=== PATIENT | female | born 1950 | race Caucasian/White ===

== ENCOUNTER 2016-09-12 11:17 | Emergency (ER) | payer OTHER ==
--- NOTE | 2016-09-12 13:25 | DIAGNOSTIC IMAGING REPORT ---
PROCEDURE: XR THORACIC SPINE 3 VIEWS INDICATION: MID BACK PAIN TECHNIQUE: Three views. COMPARISON: None. FINDINGS: Osseous structures and disc spaces are normal. No evidence of an acute process or fracture. Minimal hypertrophic spur formation IMPRESSION: 1. Negative thoracic spine.
--- NOTE | 2016-09-12 15:15 | ED ORDER SUMMARY ---
..... Patient: ERIC MCCRAY OrderSheet [facility] VisitID: [id number] [address] [place] [address] 66y, F Registration Date/Time: 09/12/2016 ORDER SHEET Weight: 74.3 kg (stated) Allergies: No Known Drug Allergy GENERAL ORDERS: Thoracic Spine 3V Urgent (12:43 09/12/2016 Cipriano Montemayor) (Ack 12:44 Mariely) (14:05 Magdiel R.N.) MEDICATION ORDERS: Toradol IM 60 mg (NOW) (12:43 09/12/2016 Cipriano Montemayor) (Ack 14:01 Magdiel R.N.) (14:08 Magidel R.N.) IV FLUIDS: ORDER SHEET NOTES: [Electronically signed by Afua Traylor R.N. (15:14 09/12/2016)] [Electronically signed by Farhat Saucedo Dr. (22:22 09/12/2016)] [Electronically locked/signed by Afua Traylor R.N. (15:14 09/12/2016)]
--- NOTE | 2016-09-12 15:15 | ED CLINICAL REPORT ---
Clinical Report - Physicians/Mid Levels [facility] [address] [place] [place] [address] 09/12/2016 11:19 Patient: ERIC MCCRAY Time Seen: 12:24; initial patient contact. Arrived- By private vehicle. Historian- patient. HISTORY OF PRESENT ILLNESS Chief Complaint: BACK PAIN. Onset- about 3 weeks ago and it is still present. Modifying factors- worsened by bending over. Not relieved by anything. It is described as being moderate in degree and in the area of the lower thoracic spine. The quality is noted to be aching. No radiation. No bladder dysfunction, bowel dysfunction, sensory loss or motor loss. Patient denies an injury but injury to the head or neck. Similar symptoms previously: Once. Recent medical care: Not recently seen/assessed. REVIEW OF SYSTEMS No fever, chills or headache. All systems otherwise negative, except as recorded above. PAST HISTORY Back Pain. Bronchitis. Anxiety Reaction. Bipolar Disorder. Depression. ADDITIONAL SURGERIES: Breast Augmentation. Cholecystectomy. Hemorrhoidectomy. Tubal Ligation. Tummy tuck. Medications: Docusate Sodium Oral, bid. [employer] Oral, daily. D3-1000 Oral (Capsule 1000 unit) 2 capsules, daily. B Complex-B12 Oral 1000 mcg, daily (2 tabs). Lipitor Oral (Tablet 20 mg) 1 tablet, daily. Zolpidem Tartrate Oral 12.5 mg, at bedtime. Evoxac Oral (Capsule 30 mg) 1 capsule, tid. Minipress Oral (Capsule 1 mg) 2 capsules, at bedtime. NexIUM Oral 20 mg, daily. Diazepam Oral 5 mg, 3x a day. Vortioxetine HBr Oral (Tablet 10 mg), daily. Allergies: No Known Drug Allergy. SOCIAL HISTORY Never smoker. No alcohol use or drug use. ADDITIONAL NOTES The nursing notes have been reviewed with agreement regarding the chief complaint, PMH and patient medications and allergies. PHYSICAL EXAM Appearance: Alert. No acute distress. ENT: Pharynx normal. Neck: Normal inspection. Neck nontender. Painless ROM. CVS: Heart sounds normal. Pulses normal. Respiratory: No respiratory distress. Breath sounds normal. Back: Mild muscle spasm of the right and left posterior back. Moderate soft tissue tenderness in the right upper, mid and lower and left upper, mid and lower thoracic area. No vertebral point tenderness or CVA tenderness. Neuro: Oriented X 3. Mood/affect normal. No motor deficit. No sensory deficit. LABS, X-RAYS, AND EKG T-Spine X-rays: Normal anterior contour line and posterior contour line. Moderate degenerative joint disease with moderate narrowing of disc spaces. No fracture present. No subluxation present. Soft tissues normal. Spinous processes aligned. Views: AP and lateral. Technique: good. The X-rays were independently viewed by me and interpreted contemporaneously by me. Prior films were not available for comparison. Interpretation time: 13:32. PROGRESS AND PROCEDURES Disposition: Discharged home in good and improved condition. Condition: good. CLINICAL IMPRESSION Acute nontraumatic thoracic back pain associated with muscle strain. INSTRUCTIONS No lifting greater than 10 lbs until well. Your Current Medications: CONTINUE TAKING THE FOLLOWING MEDICATIONS: B Complex-B12 Oral : 1000 mcg daily, 2 tabs. D3-1000 Oral : Capsule 1000 unit, 2 capsules daily. Diazepam Oral : 5 mg 3x a day. Docusate Sodium Oral : bid. Evoxac Oral : Capsule 30 mg, 1 capsule tid. Lipitor Oral : Tablet 20 mg, 1 tablet daily. Minipress Oral : Capsule 1 mg, 2 capsules at bedtime. NexIUM Oral : 20 mg daily. [employer] [facility] Oral : daily. Vortioxetine HBr Oral : Tablet 10 mg, daily. Zolpidem Tartrate Oral : 12.5 mg at bedtime. Prescription Medications: Baclofen 10 mg: take 1 orally every 8 hours Tramadol 50 mg: take 1 orally every 6 hours as needed for pain and stiffness. Do not take more than 8 tablets in a 24 hour period. Dispense thirty (30). No refills. Follow-up: Follow up with your doctor in about three days. Call for an appointment. Blood pressure screening was not performed during this visit because the patient has an active diagnosis of hypertension. The patient should follow up with a primary care provider for blood pressure management. (Electronically signed by Farhat Saucedo Dr. 09/12/2016 22:22)
--- NOTE | 2016-09-12 15:15 | ED CLINICAL REPORT ---
Clinical Report - Physicians/Mid Levels [facility] [address] [place] [place] [address] 09/12/2016 11:19 Patient: ERIC MCCRAY Time Seen: 12:24; initial patient contact. Arrived- By private vehicle. Historian- patient. HISTORY OF PRESENT ILLNESS Chief Complaint: BACK PAIN. Onset- about 3 weeks ago and it is still present. Modifying factors- worsened by bending over. Not relieved by anything. It is described as being moderate in degree and in the area of the lower thoracic spine. The quality is noted to be aching. No radiation. No bladder dysfunction, bowel dysfunction, sensory loss or motor loss. Patient denies an injury but injury to the head or neck. Similar symptoms previously: Once. Recent medical care: Not recently seen/assessed. REVIEW OF SYSTEMS No fever, chills or headache. All systems otherwise negative, except as recorded above. PAST HISTORY Back Pain. Bronchitis. Anxiety Reaction. Bipolar Disorder. Depression. ADDITIONAL SURGERIES: Breast Augmentation. Cholecystectomy. Hemorrhoidectomy. Tubal Ligation. Tummy tuck. Medications: Docusate Sodium Oral, bid. [place] Oral, daily. D3-1000 Oral (Capsule 1000 unit) 2 capsules, daily. B Complex-B12 Oral 1000 mcg, daily (2 tabs). Lipitor Oral (Tablet 20 mg) 1 tablet, daily. Zolpidem Tartrate Oral 12.5 mg, at bedtime. Evoxac Oral (Capsule 30 mg) 1 capsule, tid. Minipress Oral (Capsule 1 mg) 2 capsules, at bedtime. NexIUM Oral 20 mg, daily. Diazepam Oral 5 mg, 3x a day. Vortioxetine HBr Oral (Tablet 10 mg), daily. Allergies: No Known Drug Allergy. SOCIAL HISTORY Never smoker. No alcohol use or drug use. ADDITIONAL NOTES The nursing notes have been reviewed with agreement regarding the chief complaint, PMH and patient medications and allergies. PHYSICAL EXAM Appearance: Alert. No acute distress. ENT: Pharynx normal. Neck: Normal inspection. Neck nontender. Painless ROM. CVS: Heart sounds normal. Pulses normal. Respiratory: No respiratory distress. Breath sounds normal. Back: Mild muscle spasm of the right and left posterior back. Moderate soft tissue tenderness in the right upper, mid and lower and left upper, mid and lower thoracic area. No vertebral point tenderness or CVA tenderness. Neuro: Oriented X 3. Mood/affect normal. No motor deficit. No sensory deficit. LABS, X-RAYS, AND EKG T-Spine X-rays: Normal anterior contour line and posterior contour line. Moderate degenerative joint disease with moderate narrowing of disc spaces. No fracture present. No subluxation present. Soft tissues normal. Spinous processes aligned. Views: AP and lateral. Technique: good. The X-rays were independently viewed by me and interpreted contemporaneously by me. Prior films were not available for comparison. Interpretation time: 13:32. PROGRESS AND PROCEDURES Disposition: Discharged home in good and improved condition. Condition: good. CLINICAL IMPRESSION Acute nontraumatic thoracic back pain associated with muscle strain. INSTRUCTIONS No lifting greater than 10 lbs until well. Your Current Medications: CONTINUE TAKING THE FOLLOWING MEDICATIONS: B Complex-B12 Oral : 1000 mcg daily, 2 tabs. D3-1000 Oral : Capsule 1000 unit, 2 capsules daily. Diazepam Oral : 5 mg 3x a day. Docusate Sodium Oral : bid. Evoxac Oral : Capsule 30 mg, 1 capsule tid. Lipitor Oral : Tablet 20 mg, 1 tablet daily. Minipress Oral : Capsule 1 mg, 2 capsules at bedtime. NexIUM Oral : 20 mg daily. [employer] [facility] Oral : daily. Vortioxetine HBr Oral : Tablet 10 mg, daily. Zolpidem Tartrate Oral : 12.5 mg at bedtime. Prescription Medications: Baclofen 10 mg: take 1 orally every 8 hours Tramadol 50 mg: take 1 orally every 6 hours as needed for pain and stiffness. Do not take more than 8 tablets in a 24 hour period. Dispense thirty (30). No refills. Follow-up: Follow up with your doctor in about three days. Call for an appointment. Blood pressure screening was not performed during this visit because the patient has an active diagnosis of hypertension. The patient should follow up with a primary care provider for blood pressure management. (Electronically signed by Farhat Saucedo Dr. 09/12/2016 22:22)
--- NOTE | 2016-09-12 15:15 | ED NURSING NOTES ---
Clinical Report - Nurses [facility] [place] [address] [place] [address] 09/12/2016 11:19 Patient: ERIC MCCRAY TRIAGE Triage time 12:18. Acuity: LEVEL 3. Chief Complaint: BACK PAIN. Alert. No acute distress. DAR COMA SCORE: Dar Coma Scale: 15- eyes open spontaneously (4); best verbal response- oriented x 4 (5); best motor response- obeys commands (6). --12:25 Elif Arreola R.N. 12:18 09/12/16. BP: 183/80. HR: 73. RR: 16. O2 saturation: 99% on room air. Temp: 98.9 F (oral). Pain level now: 03/02. --12:25 Elif Arreola R.N. Weight: 74.3 kg stated. Height/Length: 63 inches Per Patient. BMI: 29. --12:22 Elif Arreola R.N. Medications Vortioxetine HBr Oral (Tablet 10 mg), daily. --12:36 Elif Arreola R.N. Diazepam Oral 5 mg, 3x a day. --12:37 Elfi Arreola R.N. NexIUM Oral 20 mg, daily. --12:38 Elif Arreola R.N. Minipress Oral (Capsule 1 mg) 2 capsules, at bedtime. --12:39 Elif Arreola R.N. Evoxac Oral (Capsule 30 mg) 1 capsule, tid. --12:40 Elif Arreola R.N. Zolpidem Tartrate Oral 12.5 mg, at bedtime. --12:41 Elif Arreola R.N. Lipitor Oral (Tablet 20 mg) 1 tablet, daily. --12:42 Elif Arreola R.N. B Complex-B12 Oral 1000 mcg, daily (2 tabs). --12:43 Elif Arreola R.N. D3-1000 Oral (Capsule 1000 unit) 2 capsules, daily. --12:44 Elif Arreola R.N. [facility] Oral, daily. --12:48 Elif Arreola R.N. Docusate Sodium Oral, bid. --12:56 Elif Arreola R.N. Allergies No Known Drug Allergy. --12:20 Elif Arreola R.N. History Arrived by private vehicle. Historian: patient. Accompanied by friend. Primary physician (Latia). Onset. (about 1 month). ( unknown if recent injury, is chronic issue). PAST MEDICAL HX: The patient is post-menopausal. SOCIAL HX: Smoker- current status unknown (no). No alcohol use or drug use. FALL RISK ASSESSMENT: Fall risk assessment completed. No fall risk identified. FUNCTIONAL ASSESSMENT: Functional assessment: no impairments noted. LEARNING NEEDS ASSESSMENT: The learning needs assessment revealed no barriers. --12:25 Elif Arreola R.N. PROBLEMS: Back Pain. Bronchitis. Anxiety Reaction. Bipolar Disorder. Depression. --12:21 Elif Arreola R.N. ADDITIONAL SURGERIES: Breast Augmentation. Cholecystectomy. Hemorrhoidectomy. Tubal Ligation. Tummy tuck. --12:21 Elif Arreola R.N. Assessment GENERAL / NEURO / PSYCH: Alert. Oriented X 4. Appears in no acute distress. Patient appears calm and cooperative. RESPIRATORY: Respirations not labored. SKIN: Skin is warm and dry. --12:25 Elif Arreola R.N. Interventions ID band on patient. To treatment room. --12:25 Elif Arreola R.N. PHYSICAL ASSESSMENT 12:09/12/16. Ambulatory to room. Patient gowned. GENERAL / NEURO / PSYCH: Alert. Oriented X 4. Appears in no acute distress. RESPIRATORY: Respirations not labored. --12:31 Elif Arreola R.N. NURSING PROGRESS NOTES 12:09/12/16. Patient gowned. Head of bed elevated. Reassurance given. Call light placed in reach. Side rails up x 1. Bed placed in lowest position. Brakes of bed on. --12:31 Elif Arreola R.N. 14:08 09/12/2016 Toradol (Ketorolac Tromethamine) IM 60 mg given. Given in the right ventral gluteus. Allergies verified and confirmed 5 rights. --14:08 Elif Arreola R.N. 15:08 09/12/2016 Toradol IM Response: no adverse reaction pain is improving. --15:08 Afua Traylor R.N. DISPOSITION / DISCHARGE Condition at departure: stable. No learning barriers present. Discharge instructions provided and reviewed with the patient. Reviewed medication(s) side effects, precautions, dosing and course information. Prescription(s) given to the patient. Reviewed referral to family practice for followup. Patient verbalized understanding. Written instructions provided in [place]. The patient was discharged home and unaccompanied at time of discharge. She left the Emergency Department ambulatory. ( provider aware of d/c v/s prior to d/c.). Medication list reviewed and validated. --15:10 Afua Traylor R.N. 15:08 09/12/16. BP: 190/86. HR: 60. RR: 16. O2 saturation: 99%. Temp: 98.7 F. Pain level now 6/10. --15:10 Afua Traylor R.N. Departure time: 15:10. --15:10 Afua rTaylor R.N. Locked/Released at 09/12/2016 15:14 by Afua Traylor R.N.
--- NOTE | 2016-09-12 15:15 | ED NURSING NOTES ---
Clinical Report - Nurses [place] [address] [place] [address] 09/12/2016 11:19 Patient: ERIC MCCRAY TRIAGE Triage time 12:18. Acuity: LEVEL 3. Chief Complaint: BACK PAIN. Alert. No acute distress. DAR COMA SCORE: Dar Coma Scale: 15- eyes open spontaneously (4); best verbal response- oriented x 4 (5); best motor response- obeys commands (6). --12:25 Elif Arreola R.N. 12:18 09/12/16. BP: 183/80. HR: 73. RR: 16. O2 saturation: 99% on room air. Temp: 98.9 F (oral). Pain level now: 03/02. --12:25 Elif Arreola R.N. Weight: 74.3 kg stated. Height/Length: 63 inches Per Patient. BMI: 29. --12:22 Elif Arreola R.N. Medications Vortioxetine HBr Oral (Tablet 10 mg), daily. --12:36 Elif Arreola R.N. Diazepam Oral 5 mg, 3x a day. --12:37 Elif Arreola R.N. NexIUM Oral 20 mg, daily. --12:38 Elif Arreola R.N. Minipress Oral (Capsule 1 mg) 2 capsules, at bedtime. --12:39 Elif Arreola R.N. Evoxac Oral (Capsule 30 mg) 1 capsule, tid. --12:40 Elif Arreola R.N. Zolpidem Tartrate Oral 12.5 mg, at bedtime. --12:41 Elif Arreola R.N. Lipitor Oral (Tablet 20 mg) 1 tablet, daily. --12:42 Elif Arreola R.N. B Complex-B12 Oral 1000 mcg, daily (2 tabs). --12:43 Elif Arreola R.N. D3-1000 Oral (Capsule 1000 unit) 2 capsules, daily. --12:44 Elif Arreola R.N. [facility] Oral, daily. --12:48 Elif Arreola R.N. Docusate Sodium Oral, bid. --12:56 Elif Arreola R.N. Allergies No Known Drug Allergy. --12:20 Elif Arreola R.N. History Arrived by private vehicle. Historian: patient. Accompanied by friend. Primary physician (Latia). Onset. (about 1 month). ( unknown if recent injury, is chronic issue). PAST MEDICAL HX: The patient is post-menopausal. SOCIAL HX: Smoker- current status unknown (no). No alcohol use or drug use. FALL RISK ASSESSMENT: Fall risk assessment completed. No fall risk identified. FUNCTIONAL ASSESSMENT: Functional assessment: no impairments noted. LEARNING NEEDS ASSESSMENT: The learning needs assessment revealed no barriers. --12:25 Elif Arreola R.N. PROBLEMS: Back Pain. Bronchitis. Anxiety Reaction. Bipolar Disorder. Depression. --12:21 Elif Arreola R.N. ADDITIONAL SURGERIES: Breast Augmentation. Cholecystectomy. Hemorrhoidectomy. Tubal Ligation. Tummy tuck. --12:21 Elif Arreola R.N. Assessment GENERAL / NEURO / PSYCH: Alert. Oriented X 4. Appears in no acute distress. Patient appears calm and cooperative. RESPIRATORY: Respirations not labored. SKIN: Skin is warm and dry. --12:25 Elif Arreola R.N. Interventions ID band on patient. To treatment room. --12:25 Elif Arreola R.N. PHYSICAL ASSESSMENT 12:09/12/16. Ambulatory to room. Patient gowned. GENERAL / NEURO / PSYCH: Alert. Oriented X 4. Appears in no acute distress. RESPIRATORY: Respirations not labored. --12:31 Elif Arreola R.N. NURSING PROGRESS NOTES 12:09/12/16. Patient gowned. Head of bed elevated. Reassurance given. Call light placed in reach. Side rails up x 1. Bed placed in lowest position. Brakes of bed on. --12:31 Elif Arreola R.N. 14:08 09/12/2016 Toradol (Ketorolac Tromethamine) IM 60 mg given. Given in the right ventral gluteus. Allergies verified and confirmed 5 rights. --14:08 Elif Arreola R.N. 15:08 09/12/2016 Toradol IM Response: no adverse reaction pain is improving. --15:08 Afua Traylor R.N. DISPOSITION / DISCHARGE Condition at departure: stable. No learning barriers present. Discharge instructions provided and reviewed with the patient. Reviewed medication(s) side effects, precautions, dosing and course information. Prescription(s) given to the patient. Reviewed referral to family practice for followup. Patient verbalized understanding. Written instructions provided in Chinese. The patient was discharged home and unaccompanied at time of discharge. She left the Emergency Department ambulatory. ( provider aware of d/c v/s prior to d/c.). Medication list reviewed and validated. --15:10 Afua Traylor R.N. 15:08 09/12/16. BP: 190/86. HR: 60. RR: 16. O2 saturation: 99%. Temp: 98.7 F. Pain level now 6/10. --15:10 Afua Traylor R.N. Departure time: 15:10. --15:10 Afua Traylor R.N. Locked/Released at 09/12/2016 15:14 by Afua Traylor R.N.
--- NOTE | 2016-09-12 15:15 | ED ORDER SUMMARY ---
..... Patient: ERIC MCCRAY OrderSheet [facility] VisitID: [id number] [address] [place] [address] 66y, F Registration Date/Time: 09/12/2016 ORDER SHEET Weight: 74.3 kg (stated) Allergies: No Known Drug Allergy GENERAL ORDERS: Thoracic Spine 3V Urgent (12:43 09/12/2016 Cipriano Montemayor) (Ack 12:44 Mariely) (14:05 Magdiel R.N.) MEDICATION ORDERS: Toradol IM 60 mg (NOW) (12:43 09/12/2016 Cipriano Montemayor) (Ack 14:01 Magdiel R.N.) (14:08 Magdiel R.N.) IV FLUIDS: ORDER SHEET NOTES: [Electronically signed by Afua Traylor R.N. (15:14 09/12/2016)] [Electronically signed by Farhat Saucedo Dr. (22:22 09/12/2016)] [Electronically locked/signed by Afua Traylor R.N. (15:14 09/12/2016)]
--- NOTE | 2016-09-12 22:22 | ED MAR SUMMARY ---
..... Medication Administration Record [facility] [address] [place] [address] Patient: ERIC MCCRAY Visit ID: [id number] 66y, F Weight: 74.3 kg Height/Length: 63 in BMI: 29 ALLERGIES: No Known Drug Allergy Given 14:08 09/12/2016 Elif Arreola R.N. Medication Administered: TORADOL [IM] (KETOROLAC TROMETHAMINE), Dose: 60 mg IM. Medication Ordered: Toradol IM 60 mg (NOW).
--- NOTE | 2016-09-12 22:22 | ED MED RECONCILIATION SUMMARY ---
Patient: ERIC MCCRAY Medication Reconciliation Report [facility] VisitID: [id number] [address] [place] [address] 66y, F Registration Date/Time: 09/12/2016 Weight: 74.3 kg Height/Length: 63 in. BMI: 29.0 ALLERGIES: No Known Drug Allergy The patient's Home Medications are listed below: CONTINUE TAKING THE FOLLOWING MEDICATIONS: B Complex-B12 Oral 1000 mcg, daily, 2 tabs D3-1000 Oral (1000 unit) 2 capsules, daily Diazepam Oral 5 mg, 3x a day Docusate Sodium Oral, bid Evoxac Oral (30 mg) 1 capsule, tid Lipitor Oral (20 mg) 1 tablet, daily Minipress Oral (1 mg) 2 capsules, at bedtime NexIUM Oral 20 mg, daily [facility] Oral, daily Vortioxetine HBr Oral (10 mg), daily Zolpidem Tartrate Oral 12.5 mg, at bedtime The source(s) of the original Home Medication information: Not obtained. The following Medications were given to the patient in the Emergency Department: Toradol [IM] IM 60 mg, administered: 09/12/2016 2:08:00 PM The following Medications were prescribed to the patient: Baclofen 10 mg: take 1 orally every 8 hours -- Farhat Saucedo Dr. Tramadol 50 mg: take 1 orally every 6 hours as needed for pain and stiffness. Do not take more than 8 tablets in a 24 hour period. Dispense thirty (30). No refills. -- Farhat Sacuedo Dr.
--- NOTE | 2016-09-12 22:22 | ED DISCHARGE INSTRUCTIONS ---
Patient: ERIC MCCRAY General Instructions [facility] VisitID: [id number] [place] [address] 66y, F Registration Date/Time: 09/12/2016 Acute nontraumatic thoracic back pain associated with muscle strain. INSTRUCTIONS No lifting greater than 10 lbs until well. Your Current Medications: CONTINUE TAKING THE FOLLOWING MEDICATIONS: B Complex-B12 Oral : 1000 mcg daily, 2 tabs. D3-1000 Oral : Capsule 1000 unit, 2 capsules daily. Diazepam Oral : 5 mg 3x a day. Docusate Sodium Oral : bid. Evoxac Oral : Capsule 30 mg, 1 capsule tid. Lipitor Oral : Tablet 20 mg, 1 tablet daily. Minipress Oral : Capsule 1 mg, 2 capsules at bedtime. NexIUM Oral : 20 mg daily. Navarro UYA[facility] Oral : daily. Vortioxetine HBr Oral : Tablet 10 mg, daily. Zolpidem Tartrate Oral : 12.5 mg at bedtime. Prescription Medications: Baclofen 10 mg: take 1 orally every 8 hours Tramadol 50 mg: take 1 orally every 6 hours as needed for pain and stiffness. Do not take more than 8 tablets in a 24 hour period. Dispense thirty (30). No refills. Follow-up: Follow up with your doctor in about three days. Call for an appointment. Blood pressure screening was not performed during this visit because the patient has an active diagnosis of hypertension. The patient should follow up with a primary care provider for blood pressure management. ADDITIONAL INFORMATION Back Pain [Acute Or Chronic] Back pain is usually caused by an injury to the muscles or ligaments of the spine. Sometimes the disks that separate each bone in the spine may bulge and cause pain by pressing on a nearby nerve. Back pain may also appear after a sudden twisting/bending force (such as in a car accident), after a simple awkward movement, or lifting something heavy with poor body positioning. In either case, muscle spasm is often present and adds to the pain. Acute back pain usually gets better in one to two weeks. Back pain related to disk disease, arthritis in the spinal joints or spinal stenosis (narrowing of the spinal canal) can become chronic and last for months or years. Unless you had a physical injury (for example, a car accident or fall) X-rays are usually not ordered for the initial evaluation of back pain. If pain continues and does not respond to medical treatment, x-rays and other tests may be performed at a later time. Home Care: You may need to stay in bed the first few days. But, as soon as possible, begin sitting or walking to avoid problems with prolonged bed rest (muscle weakness, worsening back stiffness and pain, blood clots in the legs). When in bed, try to find a position of comfort. A firm mattress is best. Try lying flat on your back with pillows under your knees. You can also try lying on your side with your knees bent up towards your chest and a pillow between your knees. Avoid prolonged sitting. This puts more stress on the lower back than standing or walking. During the first two days after injury, apply an ICE PACK to the painful area for 20 minutes every 2-4 hours. This will reduce swelling and pain. HEAT (hot shower, hot bath or heating pad) works well for muscle spasm. You can start with ice, then switch to heat after two days. Some patients feel best alternating ice and heat treatments. Use the one method that feels the best to you. You may use acetaminophen (Tylenol) or ibuprofen (Motrin, Advil) to control pain, unless another pain medicine was prescribed. [NOTE: If you have chronic liver or kidney disease or ever had a stomach ulcer or GI bleeding, talk with your doctor before using these medicines.] Be aware of safe lifting methods and do not lift anything over 15 pounds until all the pain is gone. Follow Up with your doctor or this facility if your symptoms do not start to improve after one week. Physical therapy may be needed. [NOTE: If X-rays were taken, they will be reviewed by a radiologist. You will be notified of any new findings that may affect your care.] Get Prompt Medical Attention if any of the following occur: Pain becomes worse or spreads to your legs Weakness or numbness in one or both legs Loss of bowel or bladder control Numbness in the groin or genital area Tramadol Hydrochloride Oral tablet What is this medicine? TRAMADOL (TRA ma dole) is a pain reliever. It is used to treat moderate to severe pain in adults. How should I use this medicine? Take this medicine by mouth with a full glass of water. Follow the directions on the prescription label. If the medicine upsets your stomach, take it with food or milk. Do not take more medicine than you are told to take. Talk to your glass sander regarding the use of this medicine in children. Special care may be needed. What side effects may I notice from receiving this medicine? Side effects that you should report to your doctor or health medical care evaluation specialist as soon as possible: allergic reactions like skin rash, itching or hives, swelling of the face, lips, or tongue breathing difficulties, wheezing confusion itching light headedness or fainting spells redness, blistering, peeling or loosening of the skin, including inside the mouth seizures Side effects that usually do not require medical attention (report to your doctor or health medical care evaluation specialist if they continue or are bothersome): constipation dizziness drowsiness headache nausea, vomiting What may interact with this medicine? Do not take this medicine with any of the following medications: MAOIs like Carbex, Eldepryl, Marplan, Nardil, and Parnate This medicine may also interact with the following medications: alcohol or medicines that contain alcohol antihistamines benzodiazepines bupropion carbamazepine or oxcarbazepine clozapine cyclobenzaprine digoxin furazolidone linezolid medicines for depression, anxiety, or psychotic disturbances medicines for migraine headache like almotriptan, eletriptan, frovatriptan, naratriptan, rizatriptan, sumatriptan, zolmitriptan medicines for pain like pentazocine, buprenorphine, butorphanol, meperidine, nalbuphine, and propoxyphene medicines for sleep muscle relaxants naltrexone phenobarbital phenothiazines like perphenazine, thioridazine, chlorpromazine, mesoridazine, fluphenazine, prochlorperazine, promazine, and trifluoperazine procarbazine warfarin What if I miss a dose? If you miss a dose, take it as soon as you can. If it is almost time for your next dose, take only that dose. Do not take double or extra doses. Where should I keep my medicine? Keep out of the reach of children. Store at room temperature between 15 and 30 degrees C (59 and 86 degrees F). Keep container tightly closed. Throw away any unused medicine after the expiration date. What should I tell my health care provider before I take this medicine? They need to know if you have any of these conditions: brain tumor depression drug abuse or addiction head injury if you frequently drink alcohol containing drinks kidney disease or trouble passing urine liver disease lung disease, asthma, or breathing problems seizures or epilepsy suicidal thoughts, plans, or attempt; a previous suicide attempt by you or a family member an unusual or allergic reaction to tramadol, codeine, other medicines, foods, dyes, or preservatives or trying to get breast-feeding What should I watch for while using this medicine? Tell your doctor or health medical care evaluation specialist if your pain does not go away, if it gets worse, or if you have new or a different type of pain. You may develop tolerance to the medicine. Tolerance means that you will need a higher dose of the medicine for pain relief. Tolerance is normal and is expected if you take this medicine for a long time. Do not suddenly stop taking your medicine because you may develop a severe reaction. Your body becomes used to the medicine. This does NOT mean you are addicted. Addiction is a behavior related to getting and using a drug for a non-medical reason. If you have pain, you have a medical reason to take pain medicine. Your doctor will tell you how much medicine to take. If your doctor wants you to stop the medicine, the dose will be slowly lowered over time to avoid any side effects. You may get drowsy or dizzy. Do not drive, use machinery, or do anything that needs mental alertness until you know how this medicine affects you. Do not stand or sit up quickly, especially if you are an older patient. This reduces the risk of dizzy or fainting spells. Alcohol can increase or decrease the effects of this medicine. Avoid alcoholic drinks. You may have constipation. Try to have a bowel movement at least every 2 to 3 days. If you do not have a bowel movement for 3 days, call your doctor or health medical care evaluation specialist. Your mouth may get dry. Chewing sugarless gum or sucking hard candy, and drinking plenty of water may help. Contact your doctor if the problem does not go away or is severe. You have been given the following additional information: Back Pain (Acute Or Chronic) Tramadol Hydrochloride Oral tablet No lifting greater than 10 lbs until well. (Electronically signed by Farhat Saucedo Dr. 09/12/2016 22:22)
--- NOTE | 2016-09-12 22:22 | ED MAR SUMMARY ---
..... Medication Administration Record [facility] [address] [place] [address] Patient: ERIC MCCRAY Visit ID: [id number] 66y, F Weight: 74.3 kg Height/Length: 63 in BMI: 29 ALLERGIES: No Known Drug Allergy Given 14:08 09/12/2016 Elif Arreola R.N. Medication Administered: TORADOL [IM] (KETOROLAC TROMETHAMINE), Dose: 60 mg IM. Medication Ordered: Toradol IM 60 mg (NOW).
--- NOTE | 2016-09-12 22:22 | ED MED RECONCILIATION SUMMARY ---
Patient: ERIC MCCRAY Medication Reconciliation Report [facility] VisitID: [id number] [address] [place] [address] 66y, F Registration Date/Time: 09/12/2016 Weight: 74.3 kg Height/Length: 63 in. BMI: 29.0 ALLERGIES: No Known Drug Allergy The patient's Home Medications are listed below: CONTINUE TAKING THE FOLLOWING MEDICATIONS: B Complex-B12 Oral 1000 mcg, daily, 2 tabs D3-1000 Oral (1000 unit) 2 capsules, daily Diazepam Oral 5 mg, 3x a day Docusate Sodium Oral, bid Evoxac Oral (30 mg) 1 capsule, tid Lipitor Oral (20 mg) 1 tablet, daily Minipress Oral (1 mg) 2 capsules, at bedtime NexIUM Oral 20 mg, daily [facility] Oral, daily Vortioxetine HBr Oral (10 mg), daily Zolpidem Tartrate Oral 12.5 mg, at bedtime The source(s) of the original Home Medication information: Not obtained. The following Medications were given to the patient in the Emergency Department: Toradol [IM] IM 60 mg, administered: 09/12/2016 2:08:00 PM The following Medications were prescribed to the patient: Baclofen 10 mg: take 1 orally every 8 hours -- Farhat Saucedo Dr. Tramadol 50 mg: take 1 orally every 6 hours as needed for pain and stiffness. Do not take more than 8 tablets in a 24 hour period. Dispense thirty (30). No refills. -- Farhat Saucedo Dr.
== END 2016-09-12 15:10 | disposition home or self-care (01) ==
LOC: ED SRH 11:17
DX: S29.012A Strain of muscle and tendon of back wall of thorax, initial encounter (principal); X58.XXXA Exposure to other specified factors, initial encounter; Y93.9 Activity, unspecified; Y99.9 Unspecified external cause status; Z79.899 Other long term (current) drug therapy